=== PATIENT | female | born 1995 | race Caucasian/White ===

== ENCOUNTER 2018-06-09 22:05 | Emergency (ER) | payer OTHER ==
[~2018-06-09] VITALS: Ht 160 cm; Wt 54.4 kg
[2018-06-09 23:35] VITALS: BP 102/71
== END 2018-06-09 23:20 | disposition home or self-care (01) ==
LOC: M.ERS 22:05
DX: S61.211A Laceration without foreign body of left index finger without damage to nail, initial encounter (principal); W26.8XXA Contact with other sharp object(s), not elsewhere classified, initial encounter; Y92.89 Other specified places as the place of occurrence of the external cause; Y99.0 Civilian activity done for income or pay; Y99.8 Other external cause status